=== PATIENT | female | born 1945 | race Caucasian/White ===

== ENCOUNTER → 2016-07-15 | Outpatient (CLI) | payer BC ==
[~2016-07-15] MED LIST: CALCIUM WITH D1 CTB PO; CENTRUM SILVER1 TA1 PO; FEMHRT LOW DOSE PO; FISH OIL1000 MG PO; HCTZ 25MG25 MG PO; PERCOCET 325 MG1 TA2 PO; PRIMPRO; SUPER B COMPLEX1 TA2 PO; VITAMIN C PUR1000 MG PO; VITAMIN D1000 IU PO; WALKER; ZIAC 5/6.25MG T1 TAB PO; [UNRECOGNIZED DRUG - OTHER] PO
== END ==
LOC: COL.RAD 06:45
DX: Q62.11 Congenital occlusion of ureteropelvic junction (principal); D17.71 Benign lipomatous neoplasm of kidney

== ENCOUNTER → 2016-08-11 | Outpatient (CLI) | payer BC | LOC: MC.RAD 07:00 | DX: Z12.31 Encounter for screening mammogram for malignant neoplasm of breast (principal) ==

== ENCOUNTER → 2016-10-15 | Outpatient (CLI) | payer BC | LOC: COL.LAB 09:20 | DX: D17.24 Benign lipomatous neoplasm of skin and subcutaneous tissue of left leg (principal) ==

== ENCOUNTER → 2016-11-11 | Outpatient (CLI) | payer BC | LOC: COL.RAD 10:05 | DX: I72.3 Aneurysm of iliac artery (principal); D17.24 Benign lipomatous neoplasm of skin and subcutaneous tissue of left leg | CPT/HCPCS: Q9967 ==

== ENCOUNTER 2017-03-30 08:30 | Outpatient (RCR) | payer BC, MEDICARE | END 2017-06-11 | LOC: MKS.ESL.PT | DX: C44.99 Other specified malignant neoplasm of skin, unspecified (principal); I10 Essential (primary) hypertension; D17.24 Benign lipomatous neoplasm of skin and subcutaneous tissue of left leg ==

== ENCOUNTER 2017-07-01 14:56 | Outpatient (RCR) | payer BC, MEDICARE | END 2017-09-29 | LOC: MKS.ESL.PT | DX: I89.0 Lymphedema, not elsewhere classified (principal); Z08 Encounter for follow-up examination after completed treatment for malignant neoplasm; Z85.831 Personal history of malignant neoplasm of soft tissue ==

== ENCOUNTER → 2017-08-13 | Outpatient (CLI) | payer BC | LOC: MC.RAD 07:26 | DX: Z12.31 Encounter for screening mammogram for malignant neoplasm of breast (principal) ==

== ENCOUNTER → 2018-02-25 | Outpatient (CLI) | payer BC | LOC: COL.RAD 06:42 | DX: R93.421 Abnormal radiologic findings on diagnostic imaging of right kidney (principal) ==

== ENCOUNTER → 2018-09-24 | Outpatient (CLI) | payer BC | LOC: MC.RAD 06:56 | DX: Z12.31 Encounter for screening mammogram for malignant neoplasm of breast (principal); N63.10 Unspecified lump in the right breast, unspecified quadrant ==

== ENCOUNTER → 2018-10-01 | Outpatient (CLI) | payer BC | LOC: MC.RAD 08:21 | DX: N60.01 Solitary cyst of right breast (principal) | CPT/HCPCS: G0279 ==

== ENCOUNTER → 2019-11-03 | Outpatient (CLI) | payer BC | LOC: MC.RAD 18:14 | DX: Z12.31 Encounter for screening mammogram for malignant neoplasm of breast (principal) ==

== ENCOUNTER → 2020-11-05 | Outpatient (CLI) | payer BC | LOC: MC.RAD 06:53 | DX: Z12.31 Encounter for screening mammogram for malignant neoplasm of breast (principal) ==

== ENCOUNTER → 2021-11-06 | Outpatient (CLI) | payer BC | LOC: MC.RAD 06:56 | DX: Z12.31 Encounter for screening mammogram for malignant neoplasm of breast (principal) ==

== ENCOUNTER → 2023-04-23 | Outpatient (CLI) | payer BC | LOC: MC.RAD 12:55 | DX: C49.9 Malignant neoplasm of connective and soft tissue, unspecified (principal) ==

== ENCOUNTER → 2023-09-24 | Outpatient (CLI) | payer BC | LOC: COL.RAD 15:59 | DX: N13.30 Unspecified hydronephrosis (principal) ==

== ENCOUNTER → 2023-12-23 | Outpatient (CLI) | payer BC | LOC: MC.RAD 07:10 | DX: Z12.31 Encounter for screening mammogram for malignant neoplasm of breast (principal) ==